=== PATIENT | female | born 1955 | race Caucasian/White ===

== ENCOUNTER 2018-05-01 13:05 | Emergency (ER) | payer OTHER ==
[2018-05-01] MEDS: IBUPROFEN 800 MG TAB PO (16:26)
== END 2018-05-01 18:20 | disposition home or self-care (01) ==
LOC: E/R 13:05
DX: T14.8XXA Other injury of unspecified body region, initial encounter (principal); R40.2142 Coma scale, eyes open, spontaneous, at arrival to emergency department; R40.2362 Coma scale, best motor response, obeys commands, at arrival to emergency department; R40.2252 Coma scale, best verbal response, oriented, at arrival to emergency department; V49.40XA Driver injured in collision with unspecified motor vehicles in traffic accident, initial encounter; Z85.3 Personal history of malignant neoplasm of breast
CPT/HCPCS: 71045; 73130-LT; 99284-25